=== PATIENT | female | born 1995 | race Caucasian/White ===

== ENCOUNTER 2017-11-15 18:16 | Emergency (ER) | payer SELFPAY ==
[2017-11-15 18:21] VITALS: O2SAT 100
[2017-11-15] MEDS ORDERED: Naproxen 550 mg Tab PO STA (18:42)
[2017-11-15] MEDS ORDERED: Naproxen 550 mg Tab PO ONE (18:47)
--- NOTE | 2017-11-15 19:24 | C.PDOC ---
History Of Present Illness The patient reports she has been experiencing intermittent headaches over the past several months. Patient reports that the headache would resolved after taking tylenol, but this time the headache are becoming more frequent. Patient reports that the headache is associated with photophobia and nausea. Denies fever, neck pain, numbness, weakness, vision changes, trauma, dizziness, n Time Seen by Provider: 11/15/17 18:28 Chief Complaint (Nursing): Headache History Per: Patient History/Exam Limitations: no limitations Onset/Duration Of Symptoms: Intermittent Episodes Current Symptoms Are (Timing): Still Present Pain Scale Rating Of: 4 Quality: Dull Recent travel outside of the [place]: No Past Medical History Reviewed: Historical Data, Nursing Documentation, Vital Signs Vital Signs: Last Vital Signs Temp 98.6 F 11/15/17 19:34 Pulse 76 11/15/17 19:34 Resp 16 11/15/17 19:34 BP 114/64 11/15/17 19:34 Pulse Ox 100 11/15/17 19:34 - Medical History PMH: No Chronic Diseases Family History: States: No Known Family Hx - Social History Hx Tobacco Use: No Hx Alcohol Use: No Hx Substance Use: No - Immunization History Hx Tetanus Toxoid Vaccination: No Hx Influenza Vaccination: No Hx Pneumococcal Vaccination: No Review Of Systems Except As Marked, All Systems Reviewed And Found Negative. Physical Exam - Physical Exam Appears: Non-toxic, No Acute Distress Skin: Normal Color, Warm, No Rash Head: Atraumatic, Normacephalic, Other (No temporal artery tenderness) Eye(s): bilateral: Normal Inspection, PERRL, EOMI Ear(s): Bilateral: Normal Oral Mucosa: Moist Throat: No Erythema, No Exudate Neck: Normal ROM, Supple Chest: Symmetrical, No Tenderness Cardiovascular: Rhythm Regular, No Friction Rub, No Murmur Respiratory: Normal Breath Sounds, No Rales, No Rhonchi, No Wheezing Gastrointestinal/Abdominal: Normal Exam, Bowel Sounds (active), Soft, No Tenderness Back: Normal Inspection, No CVA Tenderness Extremity: Normal ROM, No Swelling Pulses: Left Dorsalis Pedis: Normal, Right Dorsalis Pedis: Normal Neurological/Psych: Oriented x3, Normal Motor, Normal Sensation Gait: Steady ED Course And Treatment O2 Sat by Pulse Oximetry: 100 (on RA) Pulse Ox Interpretation: Normal Medical Decision Making Medical Decision Making: The patient has a normal physical exam and no neuro deficits. On re-exam, the patient reports improvement of symptoms. Lungs are CTA, heart is RRR, Abdomen is soft, non-tender and patient is tolerating PO well. ambulatory in the ED with steady gait. Follow up with the medical doctor within 1-2 days. return if worsened. Disposition - Disposition Referrals: at [facility] [Outside] Disposition: HOME/ ROUTINE Disposition Time: 19:21 Condition: IMPROVED Additional Instructions: Follow up with the medical doctor within 1-2 days. return if worsened. Prescriptions: Acetaminophen/Butalbital/Caf [Fioricet] 1 tab PO TID PRN #20 tab PRN Reason: Headache Metoclopramide [Reglan] 1 tab PO TID PRN #25 tab PRN Reason: Nausea/Vomiting Naproxen [Naprosyn] 500 mg PO BID #20 tab Instructions: Migraine Headache (DC) Forms: [facility] (Malay) Print Language: GREENLANDIC - Clinical Impression Clinical Impression: Headache
[2017-11-15 19:35] VITALS: BP 114/64; PULSE 76; RESP 16; TEMP 98.6
== END 2017-11-15 19:35 | disposition home or self-care (01) ==
LOC: C.ER 18:16
DX: R51 Headache (principal)